=== PATIENT | female | born 1975 | race American Indian/Alaskan Native ===

== ENCOUNTER 2017-04-11 10:20 | Outpatient (CLI) | payer BC ==
--- NOTE | 2017-04-11 11:14 | XRay Report ---
CHEST TWO VIEWS: 04/11/17 10:20:00 CLINICAL: Annual physical. COMPARISON: None FINDINGS: Normal heart and pulmonary vasculature. The lungs are normally expanded and clear. Small calcified bilateral hilar granulomata. The bones and soft tissues are unremarkable. IMPRESSION: Evidence of old granulomatous disease. No acute cardiopulmonary process.
== END 2017-04-11 10:21 | disposition home or self-care (01) ==
LOC: SPVIMAG 10:20
PROVIDERS: ATTEND Internal Medicine
DX: Z00.01 Encounter for general adult medical examination with abnormal findings (principal); J84.10 Pulmonary fibrosis, unspecified; D71 Functional disorders of polymorphonuclear neutrophils
CPT/HCPCS: 71020